=== PATIENT | female | born 1985 | race Hispanic/Latino ===

== ENCOUNTER 2017-02-19 14:28 | Emergency (ER) | payer BC ==
[2017-02-19 14:35] VITALS: RESP 18; TEMP 98.9; O2SAT 98
--- NOTE | 2017-02-19 15:28 | ED PDOC ---
HPI: Chest Pain Time Seen by Provider: 02/19/17 14:40 Chief Complaint (Nursing): Chest Pain Chief Complaint (Provider): Palpitations History Per: Patient History/Exam Limitations: no limitations Onset/Duration Of Symptoms: Hrs Current Symptoms Are (Timing): Still Present Additional Complaint(s): 31 y/o female presents to the ED with palpitations which started while watching tv this afternoon with associated left leg twitching lasted less than 1 minute and resolved. She admitted to chest heaviness but denies pain, and denies shortness of breath or orthopnea. Patient also denies leg swelling, history of blood clots, cough or hemoptysis. She experience similar symptoms approximately 3 weeks ago for which she was worked up as an outpatient and had an MRI scheduled. Patient was recently treated with Xifaxan for intestinal bacterial overgrowth by her diesel motor mechanic, but has since stopped taking the medication due to perceived side effects of several weeks ago. She denies family history of blood clots or cardiac history. She has a history of anxiety and took 1 Klonopin tab after symptoms started which had minimal relief. PMD: Dr. Chema Hurst MD Past Medical History Reviewed: Historical Data, Nursing Documentation, Vital Signs Vital Signs: Last Vital Signs Temp 98.9 F 02/19/17 14:29 Pulse 86 02/19/17 18:54 Resp 18 02/19/17 18:54 BP 115/78 02/19/17 18:54 Pulse Ox 98 02/19/17 18:54 - Medical History PMH: Anxiety Other PMH: Negative for blood clots; hx respiratory papillomas (HPV related) - Surgical History Other surgeries: vocal cord surgery every 6-12months for papilommas - Family History Other Family History: Negative for blood clots and cardiac history - Social History Current smoker - smoking cessation education provided: No Alcohol: Social Drugs: Denies - Allergies Allergies/Adverse Reactions: Allergies Allergy/AdvReac Type Severity Reaction Status Date / Time No Known Allergies Allergy Verified 02/19/17 14:29 Review of Systems ROS Statement: Except As Marked, All Systems Reviewed And Found Negative Cardiovascular: Positive for: Palpitations, Other (Chest heaviness). Negative for: Chest Pain Respiratory: Negative for: Cough, Shortness of Breath, Hemoptysis Musculoskeletal: Positive for: Other (leg twitching (resolved), no edema) Physical Exam - Reviewed Nursing Documentation Reviewed: Yes Vital Signs Reviewed: Yes - Physical Exam Appears: Positive for: Well, Non-toxic, No Acute Distress Head Exam: Positive for: ATRAUMATIC, NORMAL INSPECTION, NORMOCEPHALIC Skin: Positive for: Normal Color, Warm, DRY Eye Exam: Positive for: Normal appearance, EOMI, PERRL. Negative for: Periorbital swelling, Scleral icterus ENT: Positive for: Normal ENT Inspection Neck: Positive for: Normal, Painless ROM Cardiovascular/Chest: Positive for: Regular Rate, Rhythm. Negative for: Irregularly Irregular Respiratory: Positive for: CNT, Normal Breath Sounds Pulses-Radial (L): 2+ Pulses-Radial (R): 2+ Gastrointestinal/Abdominal: Positive for: Soft. Negative for: Tenderness Back: Positive for: Normal Inspection Extremity: Positive for: Normal ROM Neurologic/Psych: Positive for: Alert, Oriented - Laboratory Results Result Diagrams: 02/19/17 15:38 02/19/17 16:00 - ECG ECG: Positive for: Interpreted By Ne ECG Rhythm: Positive for: Normal ST Segment, Nonspecific Changes Rate: 86 O2 Sat by Pulse Oximetry: 98 (RA) Pulse Ox Interpretation: Normal - Radiology X-Ray: Read By Radiologist X-Ray Interpretation: No Acute Disease Medical Decision Making Medical Decision Making: Time: 15:12 Initial Impression: Palpitations Initial Plan: --ECG --B-Type Natriuretic Peptide --CMP --Urine Drug Screen --Troponin --Urine dipstick --Urine --CBC --Chest XR Time: 16:07 FINDINGS: LUNGS: No active pulmonary disease. PLEURA: No significant pleural effusion identified. No pneumothorax apparent. CARDIOVASCULAR: Normal. OSSEOUS STRUCTURES: No significant abnormalities. VISUALIZED UPPER ABDOMEN: Normal. OTHER FINDINGS: None. IMPRESSION: No active disease labs reviewed trop neg hgb normal Chem unremarkable tox screen neg DDimer elevated HR resting 92- a bit high for resting HR for otherwise athletic young girl ( works out several times per week) Will obtain CTA chest r/o PE. 19:00 Patient transferred over to Dr. Joss MD pending CTA. Scribe Attestation: Documented by Rui Hayden and Chyna Parsons, acting as a scribe for Stanislaw Gonzales III, DO Provider Scribe Attestation: All medical record entries made by the Scribe were at my direction and personally dictated by me. I have reviewed the chart and agree that the record accurately reflects my personal performance of the history, physical exam, medical decision making, and the department course for this patient. I have also personally directed, reviewed, and agree with the discharge instructions and disposition. Disposition - Clinical Impression Clinical Impression: Palpitations - Patient ED Disposition Is Patient to be Admitted: Transfer of Care - Disposition Disposition Time: 19:00 Condition: FAIR Forms: [employer] (Irish) Patient Signed Over To: Bridget Coreas
[2017-02-19 15:43] LABS: BASO # 0.1 K/uL (0.0-0.2); BASO % 0.8 % (0.0-2.0); EOS % 0.7 % (0.0-4.0); HEMATOCRIT 40.6 % (34.0-47.0); LYMPH # 1.6 K/uL (1.0-4.3); LYMPH % 21.6 % (20.0-40.0); MEAN CELL VOLUME 91.2 fl (81.0-99.0); MEAN CORPUSCULAR HEMOGLOBIN 30.4 pg (27.0-31.0); MEAN CORPUSCULAR HGB CONC 33.3 g/dL (33.0-37.0); MEAN PLATELET VOLUME 9.4 fl (7.2-11.7); MONO # 0.6 K/uL (0.0-0.8); MONO % 8.4 % (0.0-10.0); NEUT # 5.1 K/uL (1.8-7.0); NEUT % 68.5 % (50.0-75.0); RED CELL DISTRIBUTION WIDTH 13.2 % (11.5-14.5); WHITE BLOOD COUNT 7.5 K/uL (4.8-10.8)
--- NOTE | 2017-02-19 16:09 | RAD ---
HISTORY: palpitations COMPARISON: No prior. TECHNIQUE: Chest PA and lateral FINDINGS: LUNGS: No active pulmonary disease. PLEURA: No significant pleural effusion identified. No pneumothorax apparent. CARDIOVASCULAR: Normal. OSSEOUS STRUCTURES: No significant abnormalities. VISUALIZED UPPER ABDOMEN: Normal. OTHER FINDINGS: None. IMPRESSION: No active disease.
[2017-02-19 16:13] LABS: ALB/GLOB RATIO 1.4 (1.0-2.1); ALKALINE PHOSPHATASE 67 U/L (38-126); ALT/SGPT 23 U/L (9-52); AST/SGOT 16 U/L (14-36); BILIRUBIN,TOTAL 0.5 mg/dl (0.2-1.3); BLOOD UREA NITROGEN 14 mg/dl (7-17); CALCIUM 9.7 mg/dL (8.4-10.2); CARBON DIOXIDE 23 mmol/L (22-30); CHLORIDE 106 mmol/L (98-107); GFR AFRICAN-AMERICAN > 60; GLUCOSE,RANDOM 83 mg/dL (65-105); POTASSIUM 3.9 MMOL/L (3.6-5.0); SODIUM 142 mmol/l (132-148); TOTAL PROTEIN 7.4 G/DL (6.3-8.2)
[2017-02-19 17:57] VITALS: PULSE 86
[2017-02-19] MEDS ORDERED: Iodixanol 320 MG/ML 100 ML BOTTLE IV ONE (18:02)
[2017-02-19] MEDS ORDERED: Sodium Chloride 0.9% 100 ML ONE (18:03)
[2017-02-19 18:56] VITALS: BP 115/78
--- NOTE | 2017-02-19 19:11 | ED PDOC ---
- Laboratory Results Result Diagrams: 02/19/17 15:38 02/19/17 16:00 - ECG O2 Sat by Pulse Oximetry: 98 (RA) - Progress Re-evaluation Time: 19:40 Condition: Re-examined, Improved Medical Decision Making Medical Decision Makin:00 Patient transferred over to [place] by Dr. Gonzales pending CTA. CTA Chest FINDINGS: Pulmonary arteries: Unremarkable. No pulmonary embolism. Aorta: No acute findings. No thoracic aortic aneurysm. Lungs: Unremarkable. No mass nor consolidation. Pleural space: Unremarkable. No significant pleural effusions. No pneumothorax. Heart: Unremarkable. No cardiomegaly. No significant pericardial effusion. No evidence of RV dysfunction. Bones/joints: No acute fracture nor dislocation. Soft tissues: Unremarkable. Lymph nodes: Unremarkable. No enlarged lymph nodes. IMPRESSION: No acute chest pathology. No filling defects suspicious for pulmonary emboli are seen There is no CT evidence of aortic dissection nor leakage. No aortic aneurysm is appreciated. Scribe Attestation: Documented by Chyna Parsons, acting as a scribe for Bridget Coreas MD. Provider Scribe Attestation: All medical record entries made by the Scribe were at my direction and personally dictated by me. I have reviewed the chart and agree that the record accurately reflects my personal performance of the history, physical exam, medical decision making, and the department course for this patient. I have also personally directed, reviewed, and agree with the discharge instructions and disposition. Disposition - Clinical Impression Clinical Impression: Palpitations - POA Present On Arrival: None - Disposition Referrals: Your, PCP [Other] Disposition: Routine/Home Disposition Time: 19:52 Condition: GOOD Additional Instructions: Follow up with your PCP in 2-3 days. Instructions: Palpitations (ED)
--- NOTE | 2017-02-20 08:11 | CARD ---
APPROVED REPORT EKG Measurement Heart [id number] CT [id number] [id number] <Conclusion> Sinus rhythm with marked sinus arrhythmia Possible Left atrial enlargement Borderline ECG
--- NOTE | 2017-02-20 10:20 | CT ---
PROCEDURE: CT Chest with contrast (Pulmonary Angiogram) HISTORY: palpitations, elevated DDimer COMPARISON: Plain radiographs performed the same day. TECHNIQUE: Axial computed tomography images were obtained of the chest in the pulmonary arterial phase of enhancement. Coronal and sagittal reformatted images were created and reviewed. Intravenous contrast dose: 98 mL Visipaque 320 Radiation dose: Total exam DLP = 316.98 mGy-cm. This CT exam was performed using one or more of the following dose reduction techniques: Automated exposure control, adjustment of the mA and/or kV according to patient size, and/or use of iterative reconstruction technique. FINDINGS: PULMONARY ARTERIES: There are no filling defects in the pulmonary arteries to suggest acute pulmonary embolism. AORTA: No aortic aneurysm or dissection. LUNGS: The lungs are clear without nodule, mass or pulmonary consolidation. PLEURAL SPACES: No effusion or pneumothorax. HEART: The heart is normal in size. No pericardial effusion. LYMPH NODES: No pathologic lymphadenopathy. BONES, CHEST WALL: Within normal limits for the patient's. No fracture or destructive lesion OTHER FINDINGS: Unremarkable. IMPRESSION: No acute pulmonary embolism. Clear lungs. A preliminary report was provided by [employer].
== END 2017-02-19 20:01 | disposition home or self-care (01) ==
LOC: H.ER 14:28
DX: R00.2 Palpitations (principal)
CPT/HCPCS: 71020; 71275; 80053; 81025; 83880; 84484; 85025; 85378; 93005; 99284; G0480; Q9967

== ENCOUNTER 2017-09-16 18:57 | Emergency (ER) | payer BC ==
[2017-09-16] MEDS ORDERED: Sodium Chloride 0.9% 1,000 ML IV STA (19:34)
[2017-09-16 20:06] LABS: BASO % 0.5 % (0.0-2.0); EOS # 0.1 K/uL (0.0-0.7); EOS % 0.6 % (0.0-4.0); HEMOGLOBIN 14.7 g/dL (12.0-16.0); LYMPH # 0.9 K/uL (1.0-4.3); LYMPH % 10.6 % (20.0-40.0); MEAN CELL VOLUME 91.1 fl (81.0-99.0); MEAN CORPUSCULAR HGB CONC 35.1 g/dL (33.0-37.0); MEAN PLATELET VOLUME 8.8 fl (7.2-11.7); MONO % 12.3 % (0.0-10.0); NEUT # 6.2 K/uL (1.8-7.0); NRBC % 0.1 % (0.0-0.0); RBC 4.6 Mil/uL (3.80-5.20); RED CELL DISTRIBUTION WIDTH 12.6 % (11.5-14.5); WHITE BLOOD COUNT 8.2 K/uL (4.8-10.8)
[2017-09-16 20:18] LABS: ALB/GLOB RATIO 1.2 (1.0-2.1); ALBUMIN 3.8 g/dL (3.5-5.0); ALT/SGPT 29 U/L (9-52); AST/SGOT 26 U/L (14-36); BILIRUBIN,DIRECT 0.2 mg/ml (0.0-0.4); BLOOD UREA NITROGEN 9 mg/dl (7-17); CALCIUM 8.4 mg/dL (8.4-10.2); GFR AFRICAN-AMERICAN > 60; GFR NON-AFRICAN AMERICAN > 60
--- NOTE | 2017-09-16 20:53 | ED PDOC ---
HPI: Abdomen Time Seen by Provider: 09/16/17 19:26 Chief Complaint (Nursing): Abdominal Pain Chief Complaint (Provider): n/v/d and Abdominal Pain History Per: Patient History/Exam Limitations: no limitations Onset/Duration Of Symptoms: Days (x2) Outside of [place] travel?: No Current Symptoms Are (Timing): Still Present Additional Complaint(s): 32 year old female, with history of vocal cords nodules, presented to ED with complaints of nausea, vomiting, diarrhea, and abdominal pain since yesterday. Patient reported of having a burning sensation of the entire abdomen starting in the lower abdomen and radiating upwards. She indicated having vomited twice today and having greater than 20 episodes of watery diarrhea with no blood or mucous present. Denied fever, chills, sick contacts, recent travel, antibiotic usage or abdominal surgeries. PCP: Silas Hurst Past Medical History Reviewed: Historical Data, Nursing Documentation, Vital Signs Vital Signs: Last Vital Signs Temp 97.6 F 09/16/17 19:02 Pulse 116 H 09/16/17 19:02 Resp 18 09/16/17 19:02 BP 123/79 09/16/17 19:02 Pulse Ox 100 09/16/17 21:29 - Medical History PMH: Anxiety - Surgical History Surgical History: No Surg Hx - Family History Family History: States: Unknown Family Hx - Social History Current smoker - smoking cessation education provided: No Drugs: Denies - Home Medications Home Medications: Ambulatory Orders Medication Instructions Recorded Nitrofurantoin Macrocrystals 100 mg PO BID 5 Days cap 09/16/17 [Macrobid] Ondansetron [Zofran] 4 mg PO Q8H #12 tab 09/16/17 - Allergies Allergies/Adverse Reactions: Allergies Allergy/AdvReac Type Severity Reaction Status Date / Time No Known Allergies Allergy Verified 02/19/17 14:29 Review of Systems ROS Statement: Except As Marked, All Systems Reviewed And Found Negative Constitutional: Negative for: Fever, Chills Gastrointestinal: Positive for: Nausea, Vomiting, Abdominal Pain (burning radiates upwards from lower abd), Diarrhea (> 20 episodes ). Negative for: Other (blood or mucous in diarrhea) Physical Exam - Reviewed Nursing Documentation Reviewed: Yes Vital Signs Reviewed: Yes - Physical Exam Appears: Positive for: Well, Non-toxic, No Acute Distress Head Exam: Positive for: ATRAUMATIC, NORMAL INSPECTION, NORMOCEPHALIC Skin: Positive for: Normal Color, Warm, Dry Eye Exam: Positive for: Normal appearance Cardiovascular/Chest: Positive for: Regular Rate, Rhythm Respiratory: Positive for: Normal Breath Sounds. Negative for: Respiratory Distress Gastrointestinal/Abdominal: Positive for: Tenderness (mild to palpation to RL, LL, epigastric, and sub pubic region). Negative for: Guarding, Rebound Extremity: Positive for: Normal ROM (upper/lower) Neurologic/Psych: Positive for: Alert, Oriented - Laboratory Results Result Diagrams: 09/16/17 19:49 09/16/17 19:49 - ECG O2 Sat by Pulse Oximetry: 100 (RA) Pulse Ox Interpretation: Normal Medical Decision Making Medical Decision Makin:26 A/P: * Patient is arriving with n/v/d and abdominal pain * Patient is very well appearing at the time with normal vital signs * differential includes gastroenteritis, mild colitis; less likely: diverticulitis and appendicitis * plan to hydrate patient and do blood work and reevaluate * CT not necessary at this time unless patient does not improve 1000PM -Patient is feeling significantly improved, tolerating PO, reports she feels much better, only one episode of diarrhea in ER -Advised patient to return to ER if abdominal pain worsens or any other concerning symptoms arise -Patient advised to followup with PMD Dr. Hurst in 1 - 2 days -UTI is also possible contamination, advised patient to call medical records for results of C&S -Well appearing, ambulatory, stable vitals up on discharge. Scribe Attestation: Documented by Baldo Mensah acting as a scribe for Torin Kulkarni MD. Provider Scribe Attestation: All medical record entries made by the Scribe were at my direction and personally dictated by me. I have reviewed the chart and agree that the record accurately reflects my personal performance of the history, physical exam, medical decision making, and the department course for this patient. I have also personally directed, reviewed, and agree with the discharge instructions and disposition. Disposition - Clinical Impression Clinical Impression: Gastroenteritis - Disposition Referrals: Twila Hurst MD [Primary Care Provider] - Disposition: Routine/Home Disposition Time: 22:02 Condition: IMPROVED Prescriptions: Nitrofurantoin Macrocrystals [Macrobid] 100 mg PO BID 5 Days cap Ondansetron [Zofran] 4 mg PO Q8H #12 tab Instructions: Gastroenteritis (ED), Urinary Tract Infection, Adult (DC) Forms: [employer] (Faroese)
[2017-09-16 20:54] LABS: SQUAMOUS EPITHIAL 16 /hpf (0-5); URINE BILIRUBIN NEGATIVE (NEGATIVE); URINE BLOOD NEGATIVE (NEGATIVE); URINE CLARITY CLOUDY (Clear); URINE COLOR YELLOW (YELLOW); URINE GLUCOSE (UA) NEG (Normal); URINE LEUKOCYTE ESTERASE TRACE Leu/uL (Negative); URINE PROTEIN NEGATIVE (NEGATIVE); URINE UROBILINOGEN 0.2-1.0 mg/dL (0.2-1.0)
[2017-09-16 20:55] LABS: URINE BACTERIA MANY (<OCC)
[2017-09-16 22:20] VITALS: BP 110/67; PULSE 90; RESP 16; TEMP 98.3; O2SAT 98
== END 2017-09-16 22:19 | disposition home or self-care (01) ==
LOC: H.ER 18:57
DX: K52.9 Noninfective gastroenteritis and colitis, unspecified (principal); F41.9 Anxiety disorder, unspecified
CPT/HCPCS: 80048; 80076; 81003; 81025; 83605; 85025; 87086; 96361; 96374; 96375; 99283; C9113; J2405; J7040